=== PATIENT | female | born 1970 | race Caucasian/White ===

== ENCOUNTER 2016-09-30 01:04 | Emergency (ER) | payer OTHER ==
[~2016-09-30] VITALS: Ht 154.9 cm; Wt 72.6 kg
[~2016-09-30 01:04] MED LIST: ALBUTEROL SULF8.5 GM IH; DELTASONE10 MG PO; ENDOCET 5-3251 EACH PO; IBUPROFEN200 M1 PO; NOHOMEMEDS; Proventil,Ventolin H IH; Tylenol Regular Stre PO; ZITHROMAX Z-PA250 MG PO
[2016-09-30 02:26] VITALS: BP 158/110
== END 2016-09-30 02:35 | disposition home or self-care (01) ==
LOC: EME 01:04
DX: J20.9 Acute bronchitis, unspecified (principal); J45.909 Unspecified asthma, uncomplicated; F17.200 Nicotine dependence, unspecified, uncomplicated; Z71.6 Tobacco abuse counseling
CPT/HCPCS: 99281; 99284

== ENCOUNTER 2016-12-05 10:59 | Emergency (ER) | payer OTHER ==
[~2016-12-05] VITALS: Ht 154.9 cm; Wt 71.3 kg
[2016-12-05 12:11] LABS: INFLUENZA A VIRAL ANTIGEN NEGATIVE; INFLUENZA B VIRAL ANTIGEN NEGATIVE
[2016-12-05 12:33] LABS: HEMATOCRIT 41.5 % (36.0-46.0); MCH 31.5 PG (29.0-34.0); MCHC 33.7 G/DL (30.0-36.0); MCV 93.3 FL (83-99); MEAN PLAT.VOLUME 8.7 uM^3 (9.5-12.4); PLATELET COUNT 257 K/uL (156-360); RBC DIS.WIDTH-CV 13.6 % (11.8-14.6); RBC DIS.WIDTH-SD 47.1 % (39-53); RED BLOOD COUNT 4.45 M/uL (3.80-5.20)
[2016-12-05 12:42] LABS: CHLORIDE 107 mEq/L (99-109); POTASSIUM 3.7 mEq/L (3.7-5.4); SODIUM 138 mEq/L (136-147)
[2016-12-05 12:44] LABS: GLUCOSE 97 mg/dL (70-99)
[2016-12-05 12:46] LABS: ANION GAP 9 MEQ/L (2-14)
[2016-12-05 12:48] LABS: GFR ESTIMATE (CALCULATED) > 59 mL/min/
[2016-12-05 12:49] LABS: UREA NITROGEN (BUN) 8 mg/dL (9-23)
[2016-12-05] MEDS ORDERED: PREDNISONE20 MG PO (12:58)
[2016-12-05] MEDS ORDERED: PROVENTIL HFA6.7 GM IH (12:58)
[2016-12-05] MEDS ORDERED: LEVAQUIN750 MG PO (12:58)
[2016-12-05 13:05] VITALS: BP 127/98
== END 2016-12-05 13:10 | disposition home or self-care (01) ==
LOC: EME 10:59
PROVIDERS: Emergency Medicine
DX: J06.9 Acute upper respiratory infection, unspecified (principal); J45.909 Unspecified asthma, uncomplicated; F17.200 Nicotine dependence, unspecified, uncomplicated
CPT/HCPCS: 71020; 80048; 83605; 85027; 87502; 99281; 99285; J1885; J7030